=== PATIENT | female | born 1990 | race Caucasian/White ===

== ENCOUNTER 2023-01-28 20:29 | Emergency (ER) | payer BC, SELFPAY ==
[2023-01-28 20:52] VITALS: BP 139/95; PULSE 94; RESP 16; TEMP 37; O2SAT 96; BMI 20.7
[2023-01-28 22:44] VITALS: BP 126/80; PULSE 71; RESP 17; O2SAT 100
--- NOTE | 2023-01-28 22:45 | ED.GENADULT ---
HPI - General Adult General Chief complaint: General Medical Stated complaint: Bump on jaw Time Seen by Provider: 01/28/23 22:45 Source: patient Mode of arrival: ambulatory Limitations: no limitations History of Present Illness HPI narrative: Patient has multiple complaints unable to sleep since August been to [facility] 4 times since then 2 times last week has seen the neurologist who did MRI of the brain which was negative ordered MRI of spinal. Complaining of tingling sensation bilateral unable to sleep small lump on the right mandibular area since is grown 3 times in last 4months multiple complaints also complained of back pain but can ambulate normally no focal weakness says that her symptoms been there since EBvirus infection Related Data Allergies Allergy/AdvReac Type Severity Reaction Status Date / Time No Known Allergies Allergy Verified 01/28/23 21:16 Review of Systems Review of Systems: Yes all other systems are reviewed and are negative [facility] Social History Social History Advance Directives: No Advance Directives Information Provided: No Physical Exam ED Vital Signs: Vital Signs - 24 hr 01/28/23 20:52 01/28/23 22:44 Temperature 98.6 F Pulse Rate 94 71 Respiratory Rate 16 17 Blood Pressure 139/95 H 126/80 Pulse Oximetry 96 100 Oxygen Delivery Method Room Air Room Air BMI result Body Mass Index 20.7 Appearance: Alert. Oriented X3. No acute distress. Very anxious Eyes: PERRLA, No Nystagmus ENT: Pharynx normal. Oral Mucosa moist no significant swelling noted lymphadenopathy Neck: Normal inspection. Neck supple. CVS: Normal heart rate and rhythm. Pulses normal. Respiratory: No respiratory distress. Equal air entry bilateral, no wheezing/rales/rhonchi Abdomen: Soft and nontender. Bowel sounds are present, no mass palpable, no CVA tenderness Skin: Skin warm and dry. Normal skin color. Normal skin turgor. Extremities: No lower extremity edema. No calf tenderness back: No focal tenderness noticed SLR negative bilateral Neuro: Oriented X 3. No motor deficit. No sensory deficit.No cerebellar signs , cranial nerves II-XII intact Medical Decision Making Medical Decision Making MDM Narrative: Patient with anxiety multiple complaints been kicked out from [facility] multiple times for nonspecific complaints seen multiple doctors in last few weeks shopping doctors and ERs asking the answer which is nonspecific question does not want to see therapist patient advised to follow-up with her PCP/neurology Discharge Plan Discharge Clinical Impression: Anxiety with somatization, Paranoid personality (disorder) Patient Disposition: Home, Self-Care Instructions: Generalized Anxiety Disorder (ED), Paranoid Personality Disorder (ED) Additional Instructions: Follow-up with neurologist as scheduled Interventions: ED Discharge Assessment Last Done: 01/28/23 22:57 Discharge Date/Time: 01/28/23 23:02
--- OUTSIDE RECORDS SUMMARY | 2023-01-28 22:46 | XMS_ITS | Continuity of Care Document ---
Author Name Unknown Organization [facility] Address [address] [place] [address]- Care Team Providers Care Cook Candy Name Role Phone Not on Staff, PCP Primary Care Physician Unavail able Encounter [facility] Date(s): 09/11/22 - 09/18/22 [facility] [address] [place] [address]- Attending Physician: Faye Gaviria MD Allergies, Adverse Reactions, Alerts No Known Allergies Medications Adderall 15 mg oral tablet 1 tablet = 15 mg, By Mouth, 2 times a day, 0 Refills, Maintenance, 09/11/22 12:59:00 EST, Partial fill upon patient request if the prescription is for a schedule II opioid drug. Start Date: 09/11/22 Status: Ordered amoxicillin 500 mg oral capsule 2 capsule = 1,000 mg, By Mouth, 2 times a day, for 10 days, # 40 capsule, 0 Refills, Acute 09/21/2213:19:00 EST, 09/11/22 13:19:00 EST, Capsule, [facility]/pharmacy #[id number], Partial fill upon patient requestif the prescription is for a schedule II opioid drug. Start Date: 09/11/22 Stop Date: 09/21/22 Status: Ordered escitalopram 5 mg oral tablet 2 tablet = 10 mg, By Mouth, Daily, 0 Refills, Maintenance, 09/11/22 12:58:00 EST, Partial fill uponpatient request if the prescription is for a schedule II opioid drug. Start Date: 09/11/22 Status: Ordered Vital Signs Most recent to oldest [Reference Range]: 1 Oxygen Saturation [94-100 %] 100 % (09/11/22 12:53 PM) Pulse Rate [55-90 bpm] 66 bpm (09/11/22 12:53 PM) Blood Pressure [90-138/55-84 mm Hg] 122/ 83mm Hg (09/11/22 12:53 PM) Respiratory Rate [16-30 br/min] 18 br/mi n (09/11/22 12:53 PM) Blood pressure sites Arm, right (09/11/22 12:53 PM) Patient Care team information Care Team Personnel Name: Not on Staff, PCP Position: S Physician (General Medicine) Member Role: PCP
--- NOTE | 2023-01-28 22:50 | PC.NURSE ---
Pt presents to ED with small lump to right jaw that has been there for months however states it has grown in size. Concerned that her lymphocytes are elevated and came here tonight for additional blood work because she feels her outpatient workup is taking too long to be completed. Spoke with her neurologist today who ordered a spinal MRI to be done in upcoming weeks. Dr. Hope at bedside to evaluate pt.
--- NOTE | 2023-01-28 23:01 | PC.NURSE ---
Went in to give discharge paperwork to pt. Pt unhappy that she is being discharged and states she will not be paying for this visit. Provider made aware. Pt ambulatory out of department with steady gait and all personal belongings in no acute distress.
== END 2023-01-28 23:02 | disposition home or self-care (01) ==
PROVIDERS: Emergency Provider Internal Medicine
DX: F41.9 Anxiety disorder, unspecified (principal); F45.9 Somatoform disorder, unspecified; F60.0 Paranoid personality disorder
CPT/HCPCS: 99283; 99284